=== PATIENT | male | born 1940 | race Caucasian/White ===

== ENCOUNTER → 2022-08-04 | Outpatient (CLI) | payer MEDICARE ==
[2022-08-04 16:24] LABS: ALT 22 U/L (10-49); AST 29 U/L (14-35); LDL Cholesterol,Calculated 188.1 mg/dL (0.0-131.0)
== END | disposition home or self-care (01) ==
LOC: LABWHC1 10:10
PROVIDERS: ATTEND Nurse Practitioner Acute Care
DX: E78.2 Mixed hyperlipidemia (principal)
CPT/HCPCS: 36415; 80061; 84450; 84460

== ENCOUNTER 2022-09-07 08:26 | Observation (INO) | payer MEDICARE ==
[2022-09-07] MEDS ORDERED: ALBUTEROL NEBULIZED 2.5 MG/3 ML INHALATION STA (08:51)
[2022-09-07] MEDS ORDERED: IPRATROPIUM 0.5 MG/2.5 ML NEBU INHALATION STA (08:51)
[2022-09-07] MEDS ORDERED: methylPREDNISolone SOD SUCCI 125 MG/2 ML VIAL IV STA (08:51)
--- NOTE | 2022-09-07 09:03 | ED ---
General Adult HPI - General Chief complaint: Shortness of Breath Stated complaint: SILVIO,cough Source: patient, family, RN notes reviewed, old records reviewed Mode of arrival: wheelchair Limitations: no limitations - History of Present Illness Initial comments: This is an 82-year-old male who presents emergency department stating that for 3 months she's had difficulty breathing. Patient states he has a appointment with a car pusher on Thursday but he felt as though it was getting a little worse so he came to the emergency department. Patient states he's been on steroids twice already and both times it improved his symptoms but when he runs out of steroids his symptoms returned. Patient denies having any previous history of difficulty breathing. Patient denies any chest pain patient denies any cardiac problem. Patient denies any swelling to the legs or calf tenderness. Patient states this all started about 3 months ago. Patient denies any smoking history. - Related Data Allergies Allergy/AdvReac Type Severity Reaction Status Date / Time No Known Allergies Allergy Verified 09/07/22 08:36 Review of Systems ROS Statement: Those systems with pertinent positive or pertinent negative responses have been documented in the HPI. ROS Other: All systems not noted in ROS Statement are negative. Past Medical History Additional Past Medical History / Comment(s): heart attack, vision impaired, History of Any Multi-Drug Resistant Organisms: None Reported Past Surgical History: Appendectomy Past Psychological History: No Psychological Hx Reported Smoking Status: Never smoker Past Alcohol Use History: Occasional Past Drug Use History: None Reported General Exam - General Exam Comments Initial Comments: GENERAL: Patient is well-developed and well-nourished. Patient is nontoxic and well- hydrated and is in mild distress. ENT: Neck is soft and supple. No significant lymphadenopathy is noted. Oropharynx is clear. Moist mucous membranes. Neck has full range of motion without elic iting any pain. EYES: The sclera were anicteric and conjunctiva were pink and moist. Extraocular movements were intact and pupils were equal round and reactive to light. Eyelids were unremarkable. PULMONARY: Patient has diffuse expiratory wheezing. CARDIOVASCULAR: There is a regular rate and rhythm without any murmurs gallops or rubs. ABDOMEN: Soft and nontender with normal bowel sounds. SKIN: Skin is clear with no lesions or rashes and otherwise unremarkable. NEUROLOGIC: Patient is alert and oriented x3. Cranial nerves II through XII are grossly intact. Motor and sensory are also intact. Normal speech, volume and content. Symmetrical smile. MUSCULOSKELETAL: Normal extremities with adequate strength and full range of motion. LYMPHATICS: No significant lymphadenopathy is noted PSYCHIATRIC: Normal psychiatric evaluation. Limitations: no limitations Course Vital Signs 09/07/22 09/07/22 09/07/22 08:31 08:51 09:00 Temperature 97.7 F 97.8 F Pulse Rate 80 70 68 Respiratory 18 22 22 Rate Blood Pressure 140/71 149/74 149/74 O2 Sat by Pulse 96 97 96 Oximetry 09/07/22 09/07/22 09/07/22 09:16 09:17 09:29 Temperature Pulse Rate 70 70 Respiratory 22 Rate Blood Pressure O2 Sat by Pulse Oximetry 09/07/22 09:30 Temperature Pulse Rate 70 Respiratory 16 Rate Blood Pressure 148/73 O2 Sat by Pulse 100 Oximetry Medical Decision Making - Medical Decision Making EKG was interpreted by myself shows a sinus rhythm at 76 bpm [place] interval is 179 QRS is 113 QT interval 361 QTC is 391. There are no ST segment elevations Was pt. sent in by a medical professional or institution (Dr. PA, SAL[employer]ERSON [employer], urgent care, hospital, or custodial...) When possible be specific @ -[No] Did you speak to anyone other than the patient for history (EMS, parent, family, police, friend...)? What history was obtained from this source @ - gave quite a bit of the past medical history over the last 3 months Did you review nursing and triage notes (agree or disagree)? Why? @ -[I reviewed and agree with nursing and triage notes] Were old charts reviewed (outside hosp., previous admission, EMS record, old EKG, old radiological studies, urgent care reports/EKG's, custodial records)? Report findings @ -I reviewed prior charts and lab work as well as radiological studies Differential Diagnosis (chest pain, altered mental status, abdominal pain women, abdominal pain men, vaginal bleeding, weakness, fever, dyspnea, syncope, headache, dizziness, GI bleed, back pain, seizure, CVA, palpatations, mental health, musculoskeletal)? @ -Differential Dyspnea: Coronary syndrome, arrhythmia, tamponade, asthma, COPD, pulmonary embolism, pneumonia, pneumothorax, pulmonary effusion, anaphylaxis, diabetic ketoacidosis, flailed chest, pulmonary contusion, diaphragmatic rupture, anemia, neuromusc ular, this is not meant to be an all-inclusive list. EKG interpreted by me (3pts min.). @ -[As above] X-rays interpreted by me (1pt min.). @ -Chest x-ray was interpreted by me as no acute abnormality. CT interpreted by me (1pt min.). @ -[None done] U/S interpreted by me (1pt. min.). @ -[None done] What testing was considered but not performed or refused? (CT, X-rays, U/S, labs)? Why? @ -[None] What meds were considered but not given or refused? Why? @ -[None] Did you discuss the management of the patient with other professionals (professionals i.e. , PA, SAL[employer]ERSON [employer], lab, RT, psych nurse, executive secretary social welfare, verifier, teacher, major gifts officer, oil field caser)? Give summary @ -[facility] the patient wrote admitting orders Was smoking cessation discussed for >3mins.? @ -[No] Was critical care preformed (if so, how long)? @ -[No] Were there social determinants of health that impacted care today? How? (Homelessness, low income, unemployed, alcoholism, drug addiction, trans portation, low edu. Level, literacy, decrease access to med. care, assisted, rehab)? @ -[No] Was there de-escalation of care discussed even if they declined (Discuss DNR or withdrawal of care, Hospice)? DNR status @ -[No] What co-morbidities impacted this encounter? (DM, HTN, Smoking, COPD, CAD, Cancer, CVA, ARF, Chemo, Hep., AIDS, mental health diagnosis, sleep apnea, morbid obesity)? @ -[None] Was patient admitted / discharged? Hospital course, mention meds given and route, prescriptions, significant lab abnormalities, going to OR and other pertinent info. @ -Patient received albuterol and Atrovent and steroids. Patient's symptoms only mildly improved he continued to wheeze diffusely. [facility] admitted the patient I consult the car pusher Undiagnosed new problem with uncertain prognosis? @ -[No] Drug Therapy requiring intensive monitoring for toxicity (Heparin, Nitro, Insulin, Cardizem)? @ -[No] Were any procedures done? @ -[No] Diagnosis/symptom? @ -Bronchospasms Acute, or Chronic, or Acute on Chronic? @ -Acute Uncomplicated (without systemic symptoms) or Complicated (systemic symptoms)? @ -Complicated Side effects of treatment? @ -[No] Exacerbation, Progression, or Severe Exacerbation? @ -Severe exacerbation Poses a threat to life or bodily function? How? (Chest pain, [place], [place], pneumonia, PE, COPD, DKA, ARF, appy, cholecystitis, CVA, Diverticulitis, Homicidal, Suicidal, threat to staff... and all critical care pts) @ -Yes This can lead to hypoxia which could lead to end organ dysfunction - Lab Data Result diagrams: 09/07/22 09:01 09/07/22 09:01 Lab Results 09/07/22 09/07/22 09/07/22 Range/Units 09:01 09:01 09:01 WBC 5.0 (3.8-10.6) k/uL RBC 4.53 (4.30-5.90) m/uL Hgb 13.4 (13.0-17.5) gm/dL Hct 40.5 (39.0-53.0) % MCV 89.5 (80.0-100.0) fL MCH 29.6 (25.0-35.0) pg MCHC 33.1 (31.0-37.0) g/dL RDW 13.3 (11.5-15.5) % Plt Count 156 (150-450) k/uL MPV 8.8 Neutrophils % 58 % Lymphocytes % 26 % Monocytes % 6 % Eosinophils % 7 % Basophils % 1 % Neutrophils # 2.9 (1.3-7.7) k/uL Lymphocytes # 1.3 (1.0-4.8) k/uL Monocytes # 0.3 (0-1.0) k/uL Eosinophils # 0.3 (0-0.7) k/uL Basophils # 0.0 (0-0.2) k/uL Sodium 142 (137-145) mmol/L Potassium 4.3 (3.5-5.1) mmol/L Chloride 104 (98-107) mmol/L Carbon Dioxide 30 (22-30) mmol/L Anion Gap 8 mmol/L BUN 27 H (9-20) mg/dL Creatinine 1.05 (0.66-1.25) mg/dL Est GFR (CKD-EPI)AfAm 76 (>60 ml/min/1.73 sqM) Est GFR (CKD-EPI)NonAf 65 (>60 ml/min/1.73 sqM) Glucose 110 H (74-99) mg/dL Plasma Lactic Acid Rashi 1.2 (0.7-2.0) mmol/L Calcium 9.4 (8.4-10.2) mg/dL Total Bilirubin 0.6 (0.2-1.3) mg/dL AST 35 (17-59) U/L ALT 26 (4-49) U/L Alkaline Phosphatase 60 (38-126) U/L Troponin I (0.000-0.034) ng/mL Total Protein 7.6 (6.3-8.2) g/dL Albumin 4.4 (3.5-5.0) g/dL 09/07/22 Range/Units 09:01 WBC (3.8-10.6) k/uL RBC (4.30-5.90) m/uL Hgb (13.0-17.5) gm/dL Hct (39.0-53.0) % MCV (80.0-100.0) fL MCH (25.0-35.0) pg MCHC (31.0-37.0) g/dL RDW (11.5-15.5) % Plt Count (150-450) k/uL MPV Neutrophils % % Lymphocytes % % Monocytes % % Eosinophils % % Basophils % % Neutrophils # (1.3-7.7) k/uL Lymphocytes # (1.0-4.8) k/uL Monocytes # (0-1.0) k/uL Eosinophils # (0-0.7) k/uL Basophils # (0-0.2) k/uL Sodium (137-145) mmol/L Potassium (3.5-5.1) mmol/L Chloride (98-107) mmol/L Carbon Dioxide (22-30) mmol/L Anion Gap mmol/L BUN (9-20) mg/dL Creatinine (0.66-1.25) mg/dL Est GFR (CKD-EPI)AfAm (>60 ml/min/1.73 sqM) Est GFR (CKD-EPI)NonAf (>60 ml/min/1.73 sqM) Glucose (74-99) mg/dL Plasma Lactic Acid Rashi (0.7-2.0) mmol/L Calcium (8.4-10.2) mg/dL Total Bilirubin (0.2-1.3) mg/dL AST (17-59) U/L ALT (4-49) U/L Alkaline Phosphatase (38-126) U/L Troponin I 0.021 (0.000-0.034) ng/mL Total Protein (6.3-8.2) g/dL Albumin (3.5-5.0) g/dL Disposition Clinical Impression: Acute bronchospasm Disposition: ADMITTED IP TO THIS HOSP Referrals: Kolton Tejada MD [STAFF PHYSICIAN] - 1-2 days Time of Disposition: 10:20
[2022-09-07 09:13] LABS: Basophils % (A) 1 %; Eosinophils # (A) 0.3 k/uL (0-0.7); Eosinophils % (A) 7 %; HCT 40.5 % (39.0-53.0); HGB 13.4 gm/dL (13.0-17.5); Lymphocytes # (A) 1.3 k/uL (1.0-4.8); Lymphocytes % (A) 26 %; MCH 29.6 pg (25.0-35.0); MCHC 33.1 g/dL (31.0-37.0); MCV 89.5 fL (80.0-100.0); Mean Platelet Volume 8.8; Monocytes # (A) 0.3 k/uL (0-1.0); Monocytes % (A) 6 %; Neutrophils # (A) 2.9 k/uL (1.3-7.7); Neutrophils % (A) 58 %; Platelet Count 156 k/uL (150-450); RBC 4.53 m/uL (4.30-5.90); RDW 13.3 % (11.5-15.5)
[2022-09-07 09:24] LABS: Albumin 4.4 g/dL (3.5-5.0); Calcium 9.4 mg/dL (8.4-10.2); Potassium 4.3 mmol/L (3.5-5.1); Total Bilirubin 0.6 mg/dL (0.2-1.3); Total Protein 7.6 g/dL (6.3-8.2)
--- NOTE | 2022-09-07 09:49 | XR ---
EXAMINATION TYPE: XR chest 2V DATE OF EXAM: 09/07/2022 COMPARISON: NONE HISTORY: Difficulty in breathing. TECHNIQUE: Frontal and lateral views of the chest are obtained. FINDINGS: There is no suspicious focal air space opacity, pleural effusion, or pneumothorax seen. T he cardiac silhouette size is within normal limits. The osseous structures are demineralized. IMPRESSION: No acute cardiopulmonary process.
[2022-09-07] MEDS ORDERED: NALOXONE 0.4 MG/ML 1 ML VIAL IVP PRN (10:30)
[2022-09-07] MEDS ORDERED: IPRATROPIUM-ALBUTEROL 3 ML NEB INHALATION PRN (10:30)
[2022-09-07] MEDS: IPRATROPIUM-ALBUTEROL 3 ML NEB INHALATION SCH ×3 (11:40→19:28)
[2022-09-07] MEDS: methylPREDNISolone SOD SUCCI 125 MG/2 ML VIAL IV SCH ×3 (13:44→23:07)
[2022-09-07] MEDS ORDERED: ACETAMINOPHEN TAB 325 MG TAB PO PRN (14:03)
--- NOTE | 2022-09-07 14:10 | P.HPIM ---
History of Present Illness H&P Date: 09/07/22 History of present illness; patient is a 82-year-old gentleman who presented to the ER because of shortness of breath that started 3 months ago. Patient stated that he has been feeling short of breath on exertion. Also complaining of chest congestion and cough. Patient stated he has been having a hard time bringing up any phlegm. Patient stated that he has completed 2 courses of steroids and h e only feels good when he is on steroids, as soon as he is off steroids he still feels the same. Denies any chest pain. Denies any fever or chills. Denies any history of any smoking history. Because of the shortness of breath patient came to the ER Initial lab work in the ER showed white count 5, hemoglobin 13.4, platelet count 156, sodium 142, potassium 4.3, BUN 27, creatinine 1.05, initial troponin normal Chest x-ray negative for acute cardiopulmonary process. Patient admitted to internal medicine service for further evaluation and treatment REVIEW OF SYSTEMS: CONSTITUTIONAL: No fever, no malaise, no fatigue. HEENT: No recent visual problems or hearing problems. Denied any sore throat. CARDIOVASCULAR: No chest pain, orthopnea, PND, no palpitations, no syncope. PULMONARY: No shortness of breath, no cough, no hemoptysis. GASTROINTESTINAL: No diarrhea, no nausea, no vomiting, no abdominal pain. NEUROLOGICAL: No headaches, no weakness, no numbness. HEMATOLOGICAL: Denies any bleeding or petechiae. GENITOURINARY: Denies any burning micturition, frequency, or urgency. MUSCULOSKELETAL/RHEUMATOLOGICAL: Denies any joint pain, swelling, or any muscle pain. ENDOCRINE: Denies any polyuria or polydipsia. The rest of the 14-point review of systems is negative. PHYSICAL EXAMINATION: GENERAL: The patient is alert and oriented x3, not in any acute distress. Well developed, well nourished. HEENT: Pupils are round and equally reacting to light. EOMI. No scleral icterus. No conjunctival pallor. Normocephalic, atraumatic. No pharyngeal erythema. No thyromegaly. CARDIOVASCULAR: S1 and S2 present. No murmurs, rubs, or gallops. PULMONARY: Chest is clear to auscultation, no wheezing or crackles. ABDOMEN: Soft, nontender, nondistended, normoactive bowel sounds. No palpable organomegaly. MUSCULOSKELETAL: No joint swelling or deformity. EXTREMITIES: No cyanosis, clubbing, or pedal edema. NEUROLOGICAL: Gross neurological examination did not reveal any focal deficits. SKIN: No rashes. Assessment and plan Shortness of breath Acute bronchitis Plan; Monitor vital signs monitor CBC Monitor CMP Ordered pro-BMP Ordered d-dimer Ordered 2-D echo Continue IV Solu-Medrol Continue breathing treatment Consult pulmonology Past Medical History Additional Past Medical History / Comment(s): heart attack, vision impaired, History of Any Multi-Drug Resistant Organisms: None Reported Past Surgical History: Appendectomy Past Psychological History: No Psychological Hx Reported Smoking Status: Never smoker Past Alcohol Use History: Occasional Past Drug Use History: None Reported Medications and Allergies Home Medications Medication Instructions Recorded Confirmed Type Acetaminophen [Tylenol] 650 mg PO Q6H PRN 09/07/22 09/07/22 History Albuterol Sulfate [Albuterol 2 puff PO RT-Q4H 09/07/22 09/07/22 History Sulfate Hfa] Ibuprofen [Advil] 400 mg PO Q6H PRN 09/07/22 09/07/22 History Latanoprost [Latanoprost 0.005%] 1 drop BOTH EYES DAILY@1800 09/07/22 09/07/22 History Multivitamins, Thera [Multivitamin 1 tab PO DAILY 09/07/22 09/07/22 History (formulary)] Mupirocin 2% Oint [Bactroban 2% 1 applic RIGHT EYE HS 09/07/22 09/07/22 History Oint] Pregabalin [Lyrica] 150 mg PO TID 09/07/22 09/07/22 History Vit C/E/Zn/Coppr/Lutein/Zeaxan 1 cap PO DAILY 09/07/22 09/07/22 History [Preservision Areds 2 Softgel] Allergies Allergy/AdvReac Type Severity Reaction Status Date / Time No Known Allergies Allergy Verified 09/07/22 11:28 Physical Exam Vitals: Vital Signs Temp Pulse Resp BP Pulse Ox 09/07/22 13:00 88 19 138/69 94 L 09/07/22 12:30 67 15 119/67 09/07/22 12:00 66 17 136/66 93 L 09/07/22 11:30 65 12 139/74 93 L 09/07/22 11:00 67 14 130/67 94 L 09/07/22 10:30 73 17 138/65 95 09/07/22 10:00 71 20 141/71 98 09/07/22 09:30 70 16 148/73 100 09/07/22 09:29 70 09/07/22 09:17 22 09/07/22 09:16 70 09/07/22 09:00 68 22 149/74 96 09/07/22 08:51 97.8 F 70 22 149/74 97 09/07/22 08:31 97.7 F 80 18 140/71 96 Intake and Output 09/06/22 09/07/22 09/07/22 22:59 06:59 14:59 Other: Weight 67.132 kg Results CBC & Chem 7: 09/07/22 09:01 09/07/22 09:01 Labs: Abnormal Lab Results - Last 24 Hours (Table) 09/07/22 Range/Units 09:01 BUN 27 H (9-20) mg/dL Glucose 110 H (74-99) mg/dL
[2022-09-07] MEDS: PREGABALIN 75 MG CAP PO SCH ×2 (15:16→20:32)
[2022-09-07] MEDS ORDERED: guaiFENesin SYRUP 100MG/5ML 200 MG/10 ML CUP PO PRN (16:22)
[2022-09-07 17:47] LABS: C Reactive Protein <0.5 mg/dL (<1.0)
[2022-09-07] MEDS ORDERED: LATANOPROST 0.005% OPHTH DROPS 2.5 ML BTL BOTH EYES SCH (18:00)
[2022-09-07] MEDS: amLODIPine 5 MG TAB PO SCH (18:33)
--- NOTE | 2022-09-07 19:42 | CT ---
EXAMINATION TYPE: CT angio chest CT DLP: 316 mGycm, Automated exposure control for dose reduction was used. DATE OF EXAM: 09/07/2022 7:11 PM COMPARISON: Chest radiograph from same day. CLINICAL INDICATION:Male, 82 years old with history of Elevated D-Dimer; ELEVATED D-DIMER TECHNIQUE/CONTRAST: CTA scan of the thorax is performed with IV Contrast, patient injected with 65ML mL of Isovue 370, pu lmonary embolism protocol. MIP images are created and reviewed these are created on a separate works tation.. FINDINGS: Pulmonary Artery: There is no evidence for a filling defect within the pulmonary vasculature to sugge st acute pulmonary embolism. The pulmonary artery is of normal size. Lungs/Pleura: No evidence of focal consolidation, pleural effusion or pneumothorax. Right lower lobe 7 mm pulmonary nodule series 406 image 89. Left lower lobe 4 mm pulmonary nodule series 406 image 84. Left upper lobe calcified granuloma. Airway: Large airways are patent. Heart: Heart is within normal limits for size. Vasculature: No evidence of aortic aneurysm. Mediastinum: No gross evidence of adenopathy. Small hiatal hernia is present. Musculoskeletal: Moderate degenerative disc disease changes are present throughout the thoracolumbar spine. Soft Tissues: Increased density posterior to the nipples bilaterally consistent with gynecomastia. Lower neck: No significant findings. Upper Abdomen: No significant findings. Perirenal cysts are seen bilaterally. Gallstone in the gallbl adder neck. IMPRESSION: 1. No evidence of pulmonary embolism. 2. Right lower lobe 7 mm and left lower lobe 4 mm pulmonary nodules short-term follow-up in 6 months is recommended. 3. Cholelithiasis. 4. Small hiatal hernia.
--- NOTE | 2022-09-08 03:28 | P.CNPUL ---
History of Present Illness Consult date: 09/08/22 Requesting physician: Christian Mar Reason for consult: dyspnea, cough Chief complaint: Shortness breath and nonproductive cough over the last 3 months History of present illness: I am seeing this patient in new consultation today 09/08/2022 on the general medical floor for suspected subacute bronchitis. Patient is a 82-year-old white male with a limited past medical history of dementia and is legally blind. Patient is a very poor historian and is currently unsure why he is in the [facility]. Apparently, the patient has severe dementia and sundowns. He does reportedly live with his who is not present. The patient came in to the emergency room yesterday morning with the chief complaint of ongoing shortness of breath with an associated nonproductive cough over the last 3 months. The patient as reportedly been treated with multiple rounds of steroids, which help initially, but his symptoms return once the steroids are tapered off. No documented history of lung disease. No reported smoking history. Patient is currently resting in bed, on room air, in no acute distress. Chest x-ray on arrival showed no acute cardiopulmonary process. D-dimer was elevated at 0.77. A follow-up chest CTA showed no evidence of pulmonary embolism. There was a right lower lobe 7 mm pulmonary nodule and a left lower lobe 4 mm pulmonary nodule, which 6 month follow-up was recommended. There is also some cholelithiasis and a small hiatal hernia. CBC on arrival was essentially unrema rkable without any leukocytosis. BMP was also unremarkable. NT proBNP was low at 174. Troponin negative 1. Patient is currently receiving a combination of bronchodilators and steroids. Lungs are minimally bronchospastic. No documented fever. Vital signs are stable. Review of Systems ROS unobtainable: due to mental status Past Medical History Additional Past Medical History / Comment(s): heart attack, vision impaired, History of Any Multi-Drug Resistant Organisms: None Reported Past Surgical History: Appendectomy Past Psychological History: No Psychological Hx Reported Smoking Status: Never smoker Past Alcohol Use History: Occasional Past Drug Use History: None Reported Medications and Allergies Home Medications Medication Instructions Recorded Confirmed Type Acetaminophen [Tylenol] 650 mg PO Q6H PRN 09/07/22 09/07/22 History Albuterol Sulfate [Albuterol 2 puff PO RT-Q4H 09/07/22 09/07/22 History Sulfate Hfa] Ibuprofen [Advil] 400 mg PO Q6H PRN 09/07/22 09/07/22 History Latanoprost [Latanoprost 0.005%] 1 drop BOTH EYES DAILY@1800 09/07/22 09/07/22 History Multivitamins, Thera [Multivitamin 1 tab PO DAILY 09/07/22 09/07/22 History (formulary)] Mupirocin 2% Oint [Bactroban 2% 1 applic RIGHT EYE HS 09/07/22 09/07/22 History Oint] Pregabalin [Lyrica] 150 mg PO TID 09/07/22 09/07/22 History Vit C/E/Zn/Coppr/Lutein/Zeaxan 1 cap PO DAILY 09/07/22 09/07/22 History [Preservision Areds 2 Softgel] Allergies Allergy/AdvReac Type Severity Reaction Status Date / Time No Known Allergies Allergy Verified 09/07/22 11:28 Physical Exam Vitals: Vital Signs Temp Pulse Pulse Resp BP BP Pulse Ox 09/07/22 19:40 83 09/07/22 19:30 85 09/07/22 19:23 98.2 F 80 18 138/65 94 L 09/07/22 18:30 84 149/64 09/07/22 15:00 97.5 F L 77 16 182/77 96 09/07/22 14:45 80 09/07/22 14:36 84 09/07/22 13:00 88 19 138/69 94 L 09/07/22 12:30 67 15 119/67 09/07/22 12:00 66 17 136/66 93 L 09/07/22 11:30 65 12 139/74 93 L 09/07/22 11:00 67 14 130/67 94 L 09/07/22 10:30 73 17 138/65 95 09/07/22 10:00 71 20 141/71 98 09/07/22 09:30 70 16 148/73 100 09/07/22 09:29 70 09/07/22 09:17 22 09/07/22 09:16 70 09/07/22 09:00 68 22 149/74 96 09/07/22 08:51 97.8 F 70 22 149/74 97 09/07/22 08:31 97.7 F 80 18 140/71 96 Intake and Output 09/07/22 09/07/22 09/08/22 14:59 22:59 06:59 Other: # Voids 1 1 Weight 67.132 kg GENERAL EXAM: Alert but disoriented, 82-year-old white male, comfortable in no apparent distress. HEAD: Normocephalic and atraumatic EYES: Normal reaction of pupils, equal size. NOSE: Clear with pink turbinates. THROAT: No erythema or exudates. NECK: No masses, no JVD. CHEST: No chest wall deformity. LUNGS: Equal air entry with minimal end expiratory wheezes. no crackles, rhonchi or dullness. On room air. No conversational dyspnea or accessory muscle use.. CVS: S1 and S2 normal with no audible murmur, regular rhythm. No extra heart sounds ABDOMEN: No hepatosplenomegaly, active bowel sounds, no guarding or rigidity. SPINE: No scoliosis or deformity SKIN: No rashes CENTRAL NERVOUS SYSTEM: No focal deficits, tone is normal in all 4 extremities. Disoriented 3 EXTREMITIES: There is no peripheral edema, clubbing, or cyanosis. Peripheral pulses are intact. Results - Laboratory Findings CBC and BMP: 09/07/22 09:01 09/07/22 09:01 PT/INR, D-dimer D-Dimer 0.77 mg/L FEU (<0.60) H 09/07/22 15:30 Abnormal lab findings: Abnormal Labs 09/07/22 09/07/22 09:01 15:30 D-Dimer 0.77 H BUN 27 H Glucose 110 H - Diagnostic Findings Chest x-ray: image reviewed CT scan - chest: image reviewed Assessment and Plan Assessment: Suspected subacute bronchitis. Chest x-ray on arrival showed no evidence of focal consolidation or pneumonia. Chronic cough Elevated d-dimer, pulmonary embolism ruled out with chest CTA Pulmonary nodules, chest CTA showed a right lower lobe 7 mm nodule and a left lower lobe 4 mm pulmonary nodule, and recommended short-term follow-up in 6 months Small hiatal hernia Cholelithiasis, without clinical evidence of cholecystitis Severe dementia Plan: Patient's medications, labs, chest x-ray reviewed On room air Continue bronchodilators and IV steroids Antitussive medication with Robitussin Recommend short-term six-month follow-up in regard to patient's pulmonary nodules We will continue to follow I have personally seen and examined the patient, performed the documentation and the assessment and plan as written. Number of minutes spent on the visit:20 Time with Patient: Greater than 30
[2022-09-08] MEDS: methylPREDNISolone SOD SUCCI 125 MG/2 ML VIAL IV SCH ×2 (05:30→13:01)
[2022-09-08 05:41] VITALS: RESP 17
[2022-09-08] MEDS: IPRATROPIUM-ALBUTEROL 3 ML NEB INHALATION SCH ×3 (07:38→15:21)
[2022-09-08] MEDS: PREGABALIN 75 MG CAP PO SCH (08:00)
[2022-09-08] MEDS: amLODIPine 5 MG TAB PO SCH (08:00)
[2022-09-08 08:10] VITALS: BP 139/62; TEMP 98.5
[2022-09-08 08:42] LABS: Basophils # (A) 0.01 X 10*3/uL (0.00-0.10); Basophils % (A) 0.1 %; Eosinophils # (A) 0 X 10*3/uL (0.04-0.35); Eosinophils % (A) 0 %; HGB 12.4 g/dL (13.0-17.0); Immature Grans, Automated 0.6 %; Lymphocytes # (A) 1.12 X 10*3/uL (0.90-5.00); Lymphocytes % (A) 10.2 %; MCH 30.4 pg (27.0-32.0); MCHC 32.6 g/dL (32.0-37.0); MCV 93.1 fL (80.0-97.0); Mean Platelet Volume 10.8 fL (9.5-12.2); Monocytes % (A) 3.7 %; NRBC Per 100 WBC 0 /100 WBCS (0.0-0.0); Neutrophils # (A) 9.35 X 10*3/uL (1.80-7.70); Neutrophils % (A) 85.4 %; Platelet Count 178 X 10*3/uL (140-440); RBC 4.08 X 10*6/uL (4.40-5.60); RDW 13.2 % (11.5-14.5); WBC 10.95 X 10*3/uL (4.50-10.00)
[2022-09-08] MEDS ORDERED: VIT A,C & E-LUTEIN-MINERALS 1 EACH TAB PO SCH (09:00)
[2022-09-08] MEDS ORDERED: MULTIVITAMINS, THERA 1 EACH TAB PO SCH (09:00)
[2022-09-08 09:15] LABS: African American GFR (CKD) 79.7 (60.0-200.0); Albumin 4.1 g/dL (3.8-4.9); Albumin/Globulin Ratio 1.71 (1.60-3.17); Anion Gap 12.8 mmol/L (10.00-18.00); BUN/Creat Ratio 30.5 Ratio (12.00-20.00); Blood Urea Nitrogen 30.5 mg/dL (9.0-27.0); Calcium 9.4 mg/dL (8.7-10.3); Carbon Dioxide 23.2 mmol/L (20.0-27.5); Globulin 2.4 g/dL (1.6-3.3); Non-African American GFR(CKD) 68.8 (60.0-200.0); Potassium 4.6 mmol/L (3.5-5.5); Total Bilirubin 0.3 mg/dL (0.30-1.20); Total Protein 6.5 g/dL (6.2-8.2)
[2022-09-08 09:18] LABS: Chol/HDL Ratio 4.24 Ratio
[2022-09-08 11:15] VITALS: PULSE 88
--- NOTE | 2022-09-08 13:22 | P.DS ---
Providers Date of admission: 09/07/22 10:31 Expected date of discharge: 09/08/22 Attending physician: Halima Sánchez Consults: 09/07/22 10:32 Consult Physician Urgent Consulting Provider: Neil Sampson Consult Reason/Comments: Acute bronchospasms Do you want consulting provider notified?: Yes Primary care physician: Gosia Sharma MD Hospital Course: Discharge diagnoses; Shortness of breath Acute bronchitis Chronic cough Elevated d-dimer, pulmonary embolism ruled out with chest CTA Pulmonary nodules, chest CTA showed a right lower lobe 7 mm nodule and a left lower lobe 4 mm pulmonary nodule, and recommended short-term follow-up in 6 months Small hiatal hernia Cholelithiasis, without clinical evidence of cholecystitis Hyperlipidemia Severe dementia Hospital course; patient is a 82-year-old gentleman who presented to the ER because of shortness of breath that started 3 months ago. Patient stated that he has been feeling short of breath on exertion. Also complaining of chest congestion and cough. Patient stated he has been having a hard time bringing up any phlegm. Patient stated that he has completed 2 courses of steroids and he only feels good when he is on steroids, as soon as he is off steroids he still feels the same. Denies any chest pain. Denies any fever or chills. Denies any history of any smoking history. Because of the shortness of breath patient came to the ER Initial lab work in the ER showed white count 5, hemoglobin 13.4, platelet count 156, sodium 142, potassium 4.3, BUN 27, creatinine 1.05, initial troponin normal Chest x-ray negative for acute cardiopulmonary process. Patient admitted to internal medicine service for further evaluation and treatment 09/08. Patient seen and examined. States he feels much better compared to yesterday. Lipid panel showed elevated cholesterol of 264, LDL 178. Being discharged on Lipitor 20 mg daily. Pulmonology also evaluated the patient recommended Medrol Dosepak and albuterol. Outpatient follow-up with pulmonology PHYSICAL EXAMINATION: GENERAL: The patient is alert and oriented x3, not in any acute distress. Well developed, well nourished. HEENT: Pupils are round and equally reacting to light. EOMI. No scleral icterus. No conjunctival pallor. Normocephalic, atraumatic. No pharyngeal erythema. No th yromegaly. CARDIOVASCULAR: S1 and S2 present. No murmurs, rubs, or gallops. PULMONARY: Chest is clear to auscultation, no wheezing or crackles. ABDOMEN: Soft, nontender, nondistended, normoactive bowel sounds. No palpable organomegaly. MUSCULOSKELETAL: No joint swelling or deformity. EXTREMITIES: No cyanosis, clubbing, or pedal edema. NEUROLOGICAL: Gross neurological examination did not reveal any focal deficits. SKIN: No rashes. Plan - Discharge Summary New Discharge Prescriptions: New guaiFENesin SYRUP 100MG/5ML [Robitussin] 200 mg PO Q6HR PRN #200 ml PRN Reason: Cough methylPREDNISolone Dose Pack [Medrol Dose Pack] 4 mg PO DIRECTED #1 packet amLODIPine [Norvasc] 5 mg PO DAILY #30 tab Continue Pregabalin [Lyrica] 150 mg PO TID Ibuprofen [Advil] 400 mg PO Q6H PRN PRN Reason: Fever And/ Or Pain Albuterol Sulfate [Albuterol Sulfate Hfa] 2 puff PO RT-Q4H Vit C/E/Zn/Coppr/Lutein/Zeaxan [Preservision Areds 2 Softgel] 1 cap PO DAILY Acetaminophen [Tylenol] 650 mg PO Q6H PRN PRN Reason: Fever And/ Or Pain Mupirocin 2% Oint [Bactroban 2% Oint] 1 applic RIGHT EYE HS Multivitamins, Thera [Multivitamin (formulary)] 1 tab PO DAILY Latanoprost [Latanoprost 0.005%] 1 drop BOTH EYES DAILY@1800 Discharge Medication List Acetaminophen [Tylenol] 650 mg PO Q6H PRN 09/07/22 [History] Albuterol Sulfate [Albuterol Sulfate Hfa] 2 puff PO RT-Q4H 09/07/22 [History] Ibuprofen [Advil] 400 mg PO Q6H PRN 09/07/22 [History] Latanoprost [Latanoprost 0.005%] 1 drop BOTH EYES DAILY@1800 09/07/22 [History] Multivitamins, Thera [Multivitamin (formulary)] 1 tab PO DAILY 09/07/22 [History] Mupirocin 2% Oint [Bactroban 2% Oint] 1 applic RIGHT EYE HS 09/07/22 [History] Pregabalin [Lyrica] 150 mg PO TID 09/07/22 [History] Vit C/E/Zn/Coppr/Lutein/Zeaxan [Preservision Areds 2 Softgel] 1 cap PO DAILY 09/07/22 [History] amLODIPine [Norvasc] 5 mg PO DAILY #30 tab 09/08/22 [Rx] guaiFENesin SYRUP 100MG/5ML [Robitussin] 200 mg PO Q6HR PRN #200 ml 09/08/22 [Rx] methylPREDNISolone Dose Pack [Medrol Dose Pack] 4 mg PO DIRECTED #1 packet 09/08/22 [Rx] Follow up Appointment(s)/Referral(s): Kolton Tejada MD [STAFF PHYSICIAN] - 1-2 days Ry West DO [Doctor of Osteopathic Medicine] - 1 Week Discharge Disposition: HOME SELF-CARE
--- NOTE | 2022-09-08 13:27 | CA ---
Transthoracic Echo Report Name: Sergio Bradley Age: 82 Gender: M : 1940 Exam Date: 09/08/2022 08:49 Exam Location: [facility] Ht (in): 66 Wt (lb): 148 Ordering Physician: James Trejo MD Attending/Referring Phys: Wheel Alignment Technician Devika Kurtz RDCS Procedure CPT: Indications: SHORTNESS OF BREATH Cardiac Hx: Technical Quality: Good Contrast 1: Total Dose (mL): Contrast 2: Total Dose (mL): MEASUREMENTS (Male / Female) Normal Values 2D ECHO LV Diastolic Diameter PLAX 5.2 cm 4.2 - 5.9 / 3.9 - 5.3 cm LV Systolic Diameter PLAX 3.4 cm IVS Diastolic Thickness 1.1 cm 0.6 - 1.0 / 0.6 - 0.9 cm LVPW Diastolic Thickness 1.1 cm 0.6 - 1.0 / 0.6 - 0.9 cm LV Relative Wall Thickness 0.4 RV Internal Dim ED PLAX 3.0 cm LA Systolic Diameter LX 3.0 cm 3.0 - 4.0 / 2.7 - 3.8 cm LA Volume 41.0 cm??? 18 - 58 / 22 - 52 cm??? M-MODE Aortic Root Diameter MM 3.4 cm MV E Point Septal Separation 0.6 cm AV Cusp Separation MM 2.1 cm DOPPLER AV Peak Velocity 158.2 cm/s AV Peak Gradient 10.0 mmHg MV Area PHT 4.7 cm??? Mitral E Point Velocity 78.3 cm/s Mitral A Point Velocity 111.1 cm/s Mitral E to A Ratio 0.7 MV Deceleration Time 162.8 ms MV E' Velocity 9.4 cm/s Mitral E to MV E' Ratio 8.3 FINDINGS Left Ventricle Left ventricular ejection fraction is estimated at 55-60 %. Left ventricular cavity size normal. Left ventricular wall thickness normal. Right Ventricle Normal right ventricular size and function. Unable to estimate the right ventricular systolic pressure. Right Atrium Normal right atrial size. Left Atrium Normal left atrial size. Mitral Valve Mitral valve thickened. No mitral stenosis, regurgitation or prolapse. Aortic Valve Trileaflet aortic valve. No aortic valve stenosis or regurgitation. Tricuspid Valve Structurally normal tricuspid valve. No tricuspid stenosis, regurgitation or prolapse. Pulmonic Valve Structurally normal pulmonic valve. No pulmonic regurgitation. Pericardium Normal pericardium. No pericardial effusion. Aorta Normal size aortic root and proximal ascending aorta. CONCLUSIONS Preserved LV size and systolic function Previewed by: Dr. Isidro Cortés MD (Electronically Signed) Final Date: 08 Sep 2022 13:26
== END 2022-09-08 15:40 | disposition home or self-care (01) ==
LOC: SUPCPDRO 08:26 → EC 08:26 → 6NMEDSUR 10:31
PROVIDERS: ADMIT Hospitalist; ATTEND Hospitalist
DX: J20.9 Acute bronchitis, unspecified (principal); R79.1 Abnormal coagulation profile; R91.8 Other nonspecific abnormal finding of lung field; K44.9 Diaphragmatic hernia without obstruction or gangrene; K80.20 Calculus of gallbladder without cholecystitis without obstruction; E78.5 Hyperlipidemia, unspecified; F03.C0 Unspecified dementia, severe, without behavioral disturbance, psychotic disturbance, mood disturbance, and anxiety; I25.2 Old myocardial infarction; H53.9 Unspecified visual disturbance; Z90.49 Acquired absence of other specified parts of digestive tract; Z79.899 Other long term (current) drug therapy
CPT/HCPCS: 96376 ×2; 96374; 99285; 36415; 94640 ×4; 94760; 93005; 93306; 85379; 83880; 80061; 80053 ×2; 84443; 83605; 84484; 85025 ×2; 86140; 87636; 71046; 71275; G0378 ×2; J2930 ×2; Q9967

== ENCOUNTER 2022-12-10 07:51 | Day surgery (SDC) | payer MEDICARE ==
[2022-12-05 13:26] VITALS: BMI 25.0
[~2022-12-10 07:51] MED LIST: ALPRAZolam 0.25 MG TAB PO PRN; ALPRAZolam 0.5 MG TAB PO PRN; ASPIRIN 325 MG TAB PO STA; ATORVASTATIN 80 MG TAB PO STA; HEPARIN SODIUM,PORCINE (1 ML) 2,500 UNIT in SODIUM CHLORIDE 0.9% 250 ML IRRIGATION PRN; HEPARIN SODIUM,PORCINE 10,000 UNIT in SODIUM CHLORIDE 0.9% 1,000 ML IRRIGATION PRN; NITROGLYCERIN SL TABS 0.4 MG TAB SUBLINGUAL PRN; SODIUM CHLORIDE 0.9% 1,000 ML in EMPTY BAG 1 BAG IV SCH
[2022-12-10 08:13] VITALS: RESP 18; TEMP 97.9
[2022-12-10 08:26] LABS: Basophils % (A) 0 %; Eosinophils # (A) 0.1 k/uL (0-0.7); Eosinophils % (A) 1 %; HCT 36.2 % (39.0-53.0); HGB 12.2 gm/dL (13.0-17.5); Lymphocytes # (A) 1.5 k/uL (1.0-4.8); Lymphocytes % (A) 12 %; MCH 30.8 pg (25.0-35.0); MCHC 33.7 g/dL (31.0-37.0); MCV 91.4 fL (80.0-100.0); Mean Platelet Volume 7.8; Monocytes # (A) 0.7 k/uL (0-1.0); Monocytes % (A) 6 %; Neutrophils # (A) 9.9 k/uL (1.3-7.7); Neutrophils % (A) 79 %; Platelet Count 217 k/uL (150-450); RBC 3.96 m/uL (4.30-5.90); RDW 12.4 % (11.5-15.5); WBC 12.5 k/uL (3.8-10.6)
[2022-12-10 08:41] LABS: African American GFR (CKD) >90 (>60 ml/min/1.73 sqM); Anion Gap 6 mmol/L; Blood Urea Nitrogen 23 mg/dL (9-20); Calcium 8.8 mg/dL (8.4-10.2); Carbon Dioxide 31 mmol/L (22-30); Chloride 104 mmol/L (98-107); Glucose 91 mg/dL (74-99); Non-African American GFR(CKD) 83 (>60 ml/min/1.73 sqM); Potassium 3.9 mmol/L (3.5-5.1); Sodium 141 mmol/L (137-145)
[2022-12-10] MEDS ORDERED: MIDAZOLAM 2 MG/2 ML VIAL IVP ONE (11:16)
[2022-12-10] MEDS ORDERED: fentaNYL (PF) 50 MCG/ML 2 ML AMP IVP ONE (11:16)
[2022-12-10] MEDS ORDERED: LIDOCAINE 1% INJ 10MG/ML (5 ML VIAL-PF) SQ ONE (11:17)
[2022-12-10] MEDS ORDERED: VERAPAMIL SYRINGE (5 MG/10 ML) INTRAARTER ONE (11:21)
[2022-12-10] MEDS: HEPARIN SODIUM 1,000 UN/ML (10ML VL) IVP ONE ×2 (11:23→12:22)
[2022-12-10] MEDS ORDERED: CLOPIDOGREL 75 MG TAB PO ONE (11:36)
[2022-12-10] MEDS ORDERED: HEPARIN SODIUM 1,000 UN/ML (10ML VL) IV ONE ×2 (11:42→11:52)
[2022-12-10] MEDS: NITROGLYCERIN 1000MCG/10ML SYRINGE INTRACORON ONE ×2 (11:56→12:02)
[2022-12-10] MEDS ORDERED: IOPAMIDOL-370 100ML BTL INJ ONE ×2 (12:02→12:13)
[2022-12-10] MEDS ORDERED: HEPARIN SODIUM 1,000 UN/ML (10ML VL) ONE (12:22)
[2022-12-10] MEDS ORDERED: ATROPINE SULFATE 0.1 MG/ML 10ML SYRINGE IV PRN (12:29)
[2022-12-10] MEDS ORDERED: RX INFO: IV CONTRAST WAS GIVEN 1 EACH MISC MISCELLANE PRN (12:29)
[2022-12-10] MEDS ORDERED: MAG HYDROX/AL HYDROX/SIMETH 30 ML CUP PO PRN (12:29)
[2022-12-10] MEDS ORDERED: ZOLPIDEM 5 MG TAB PO PRN (12:29)
--- NOTE | 2022-12-10 12:29 | P.PRCINT ---
Percutaneous Coronary Int. - Percutaneous Coronary Intervention Percutaneous Coronary Intervention: PROCEDURES PERFORMED: Left heart catheterization, bilateral coronary angiography, ultrasound guided arterial access, iFR LAD, PCI mid LAD with a 3.0 x 15mm Xience BILLIE, post dilated with a 3.0 NC balloon INDICATION: Abnormal stress test, dyspnea on exertion, abnormal CT coronary angiography CONSENT:I have discussed the risks, benefits and alternative therapies for the above-mentioned procedure and for both sedation/analgesia as well as necessary blood product administration, if indicated, as they pertain to this patient. The patient has indicated understanding and acceptance of the risks and procedures discussed. PROCEDURE: After the risks, benefits and alternatives of the above mentioned procedure explained in detail with the patient, informed consent was obtained. Patient was taken to the catheterization lab and prepped and draped in usual fashion. Ultrasound guidance was used to assess for arterial access. 1% lidocaine was used to anesthetize the right radial artery. A 6-Dominican sheath was placed in the right radial artery using modified Seldinger technique and ultrasound guidance. Left coronary angiography was performed with a 5-Dominican JL 3.5 catheter and right coronary angiography was performed with a 5-Dominican JR5 catheter in various views. A 5-Dominican FR5 catheter was inserted into the left ventricle and pressure measurements were obtained. The decision was made to perform iFR of the LAD. Heparin was given for ACT greater than 250. A 6-Dominican CLS 3.5 guide was used to engage the left main. A 0.014 pressure wire was advanced in the left main and normalized. It was then advanced 1-2 cm distal to mid LAD lesion. iFR was performed and was abnormal at 0.51. Therefore the decision was made to perform PCI of LAD. In additional 0.014 BMW wire was used for estrella wire. Predilation was performed with a 2.5 x 12 mm balloon. Next a 3.0 x 15 mm Xience BILLIE was placed in the mid LAD. The stent was postdilated with a 3.0 x 12 mm noncompliant balloon. The wire was pulled and final angiograms were performed.. Preintervention there is 95% mid LAD stenosis and RAVEN-3 flow and postintervention there was less than 10% stenosis with RAVEN 3 flow. The right radial sheath was removed and a TR band was placed with hemostasis achieved. The patient tolerated the procedure well. Patient was transported back to the post catheterization holding area in stable condition. Conscious Sedation: Patient was monitored under the direct supervision of myself for conscious sedation using Versed and fentanyl for a total duration of 52 minutes HEMODYNAMICS: Ao: 138/71 LV: 139/5, LVEDP 18 SELECTIVE CORONARY ARTERIOGRAPHY: LEFT MAIN: The left main is a large caliber vessel which bifurcates into the LAD and circumflex. There is no significant stenosis. LEFT ANTERIOR DESCENDING CORONARY ARTERY: LAD is a large caliber vessel which wraps around to the apex. There is diffuse proximal and mid LAD stenosis with a more focal proximal 50-60% stenosis. The mid LAD has a 95% stenosis and a mid to distal LAD has mild luminal irregularities. There are small amount of [id number] collaterals. LEFT CIRCUMFLEX CORONARY ARTERY: Left circumflex is a moderate caliber vessel. OM1 is small caliber and has a proximal 60-70% stenosis. OM 2 is moderate to large caliber and has a proximal long 50-60% stenosis. RIGHT CORONARY ARTERY: The right coronary artery is a large caliber vessel which gives off a PDA and PLV branch and is the dominant vessel. There is diffuse disease with tandem 99% stenoses and what appears to be right to right collaterals as well as more diffuse 80 and 90% distal disease. FINAL IMPRESSION: 1. Multivessel CAD as described above including proximal LAD 50-60% stenosis, mid LAD 95% stenosis, OM1 60-70% stenosis, OM 250-60% stenosis, subtotally occluded RCA with pain on 99% stenoses. 2. S/p PCI mid LAD with a 3.0 x 15mm Xience BILLIE, post dilated with a 3.0 NC balloon 3. iFR abnormal LAD 4. Mildly elevated left sided filling pressures PLAN: 1. Aggressive risk factor modification per most recent ACC/AHA guidelines. 2. Continue dual antiplatelets with aspirin and Plavix for 6 months.
[2022-12-10] MEDS ORDERED: SODIUM CHLORIDE 0.9% 1,000 ML in EMPTY BAG 1 BAG IV SCH (12:30)
[2022-12-10 15:09] VITALS: BP 140/57; PULSE 57
[2022-12-11] MEDS ORDERED: CLOPIDOGREL 75 MG TAB PO SCH ×2 (09:00)
[2022-12-11] MEDS ORDERED: ASPIRIN 81 MG PO SCH (09:00)
== END 2022-12-10 16:20 | disposition home or self-care (01) ==
LOC: CATHCVL 07:51
PROVIDERS: ATTEND Internal Medicine
DX: I25.10 Atherosclerotic heart disease of native coronary artery without angina pectoris (principal); E78.5 Hyperlipidemia, unspecified; Z82.49 Family history of ischemic heart disease and other diseases of the circulatory system
CPT/HCPCS: 93458; 93799; 80048; 85025; C9600; C1769 ×2; C1887; C1894; C1725 ×2; C1874; J2250; J2001; J3010; J1644; Q9967; J2305